=== PATIENT | female | born 1995 | race Two or more races ===

== ENCOUNTER 2017-03-28 07:23 | Inpatient (IN) | payer OTHER ==
[~2017-03-28] VITALS: Ht 157.5 cm; Wt 69.5 kg
[2017-03-28] MEDS ORDERED: ACETAMINOPHEN 500 MG TABLET PO ONE ×3 (08:01→08:15)
[2017-03-28] MEDS: IV NORMAL SALINE 1,000ML 1,000 ML IV SCH ×4 (08:10→17:06)
[2017-03-28] MEDS ORDERED: IV NORMAL SALINE 1,000ML 1,000 ML IV ONE (08:15)
[2017-03-28 08:51] LABS: CALCIUM 8.1 mg/dL (8.5-10.1); CREATININE 1.4 mg/dL (0.6-1.0); GFR 47.5; POTASSIUM 3.9 mmol/L (3.5-5.1)
[2017-03-28 08:52] LABS: ALBUMIN 3.4 g/dL (3.4-5.0); DIRECT BILIRUBIN 0.1 mg/dL (0.0-0.2); MAGNESIUM 1.7 mg/dL (1.8-2.4); TOTAL BILIRUBIN 0.4 mg/dL (0.2-1.0); TOTAL PROTEIN 6.5 g/dL (6.4-8.2)
--- NOTE | 2017-03-28 08:54 | RAD ---
Examination: Single frontal view the chest. History: History of palpitations, tachycardia Comparison: None available Findings: The cardiomediastinal silhouette grossly appears unremarkable. There is no acute infiltrate or visualized pneumothorax. Impression: No acute cardiopulmonary findings.
--- NOTE | 2017-03-28 09:06 | PHYS DOC ---
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 Pt states she saw her PCP Dr Mackey last , diagnosed upper respiratory infection and UTI discharged home with z-gerson and bactrim ds x 5 days. She completed both yesterday without missed doses. Pt states that the head congestion feels like it has moved to her chest but felt like she was improving. This morning she awoke with headache (bitemporal) not "worst of life" and myalgias. Temperature at home was 103 F, she noted her heart rate to be 144 bpm. She came to ED without prearrival treatment. On ED arrival: 102.4, 144, 20, 119/80, 100% RA Currently she complains of throbbing 8/10 headache, some back discomfort, nonproductive cough, and mildly scratchy throat. She's had poor PO intake past few days and some urinary frequency. No neck stiffness/rash/n/v/d/cp/sob/focal neurologic deficit/abdominal pain/ dysuria/flank pain/hematuria. She is normally healthy, IMM UTD (including meningococcal). 1320: I did ultimately contact Dr Mackey by phone. She reports that today's urine findings are consistent with those in her office last . Urine culture grew E. coli sensitive to bactrim. Timing/Duration: 1 week, getting worse Severity: severe Modifying Factors: improves with other Associated Symptoms: cough, diaphoresis, fever/chills, headaches, loss of appetite, malaise, other Allergies: Coded Allergies: No Known Allergies (Verified Allergy, Unknown, 03/28/17) Past Medical History Medical History: migraines Surgical History: noncontributory (wisdom teeth) Social History Smoker: non-smoker Alcohol: none Drugs: none Review of Systems Constitutional: chills, diaphoresis, fever, malaise EENTM: see HPI, denies eye pain, denies blurred vision, denies ear pain, denies ear discharge, nose congestion Respiratory: see HPI, cough, denies orthopnea, denies shortness of breath, denies wheezing Cardiovascular: see HPI, denies chest pain, denies syncope Gastrointestinal: denies abdominal pain, denies constipation, denies diarrhea, denies nausea, denies vomiting Genitourinary: see HPI Musculoskeletal: see HPI, denies joint swelling, denies muscle stiffness, denies neck pain Skin: denies dryness, denies lesions, denies rash Psychiatric/Neurological: headache, denies numbness, denies paresthesia, denies seizure, denies tingling, denies weakness Hematologic/Lymphatic: denies blood clots, denies easy bleeding, denies easy bruising Physical Exam General Appearance: WD/WN, no apparent distress Eyes: bilateral eye normal inspection, bilateral eye PERRL, bilateral eye EOMI Ear, Nose, Throat: hearing grossly normal, normal ENT inspection (green/yellow nasal and PND, mild pharyngeal erythema no exudate, airway patent) Neck: non-tender, full range of motion, supple (no meningeal signs, shotty tender LA b/l) Respiratory: chest non-tender, lungs clear, no respiratory distress, other ( mildly decreased bases b/l) Cardiovascular: normal peripheral pulses, no edema, no murmur, tachycardia Gastrointestinal: normal bowel sounds, non tender, soft, no organomegaly Back: normal inspection, no CVA tenderness, no vertebral tenderness Extremities: normal range of motion, non-tender, normal inspection, no calf tenderness, pelvis stable 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 No STEMI. Interpreted by me. PATIENT: MELISA EDMOND ACCOUNT: [id number] : 1995 LOCATION: ER AGE: 21 SEX: F EXAM STATUS: REG ER ORD. PHYSICIAN: VENTURA MCCLOUD DO REASON: tachycardia PROCEDURE: PORTABLE CHEST 1V Examination: Single frontal view the chest. History: History of palpitations, tachycardia Comparison: None available Findings: The cardiomediastinal silhouette grossly appears unremarkable. There is no acute infiltrate or visualized pneumothorax. Impression: No acute cardiopulmonary findings. DICTATED AND SIGNED BY: MILKA LANTIGUA MD DATE: 03/28/17 0848 CC: EDMUNDO MACKEY DO; VENTURA MCCLOUD DO ~ 0943: Time in dept 2h 21min, labs not yet resulted. Prolonged ED course due to lab delay. 1154: Time in department nearly 4 hours. D-dimer just resulted, elevated, CTA chest ordered. Further prolonged course as now will have radiology delay. Pt VS have begun to normalize, she's afebrile HR in 90's-100's. I recheck pt again , she reports she's feeling better, no longer with headache. Her color has improved. WBC 5.8, plt 126, bands 13, neuts 88, eos 6, BUN 12, Cr 1.4, lactic acid 1.1, mag 1.7, d-dimer 3.36 UA: SE mod, WBC 20-40, RBC 6-10, LE small, blood small, ket 40, +yeast PATIENT: MELISA EDMOND ACCOUNT: [id number] : 1995 LOCATION: ER AGE: 21 SEX: F EXAM STATUS: REG ER ORD. PHYSICIAN: VENTURA MCCLOUD DO REASON: cough, tachycardia, elev d-dimer PROCEDURE: CT ANGIOGRAPHY CHEST Examination: CT angiogram of the chest History: History of cough, tachycardia, elevated d-dimer, palpitations Comparison: None available Technique: Axial CT angiographic images chest were performed with IV contrast. Coronal and sagittal 3-D MIP reformats are performed PQRS Compliance Statement: One or more of the following individualized dose reduction techniques were utilized for this examination: 1. Automated exposure control 2. Adjustment of the mA and/or kV according to patient size 3. Use of iterative reconstruction technique. Findings: The visualized thyroid gland grossly appears unremarkable. The central airways are patent. The heart size grossly appears unremarkable. Minimal density identified in the anterior mediastinum measuring 35 Hounsfield units probably involuting thymus. There is no evidence of filling defect identified in the main pulmonary arterial trunk and right leg and left main pulmonary arteries. There is no evidence of filling defects identified in the visualized lobar, proximal segmental branches of the pulmonary arteries. The evaluation of the distal segmental branches of the pulmonary arteries is limited. Minimal bibasal lung atelectasis. The caliber of the aorta grossly appears unremarkable. The visualized liver, spleen, adrenals grossly appears unremarkable. No evidence of lytic bony destructive lesion. Impression: 1. No evidence of central pulmonary embolism. Evaluation of the distal pulmonary segmental branches of the pulmonary arteries is somewhat limited. 2. Minimal bibasal lung atelectasis. DICTATED AND SIGNED BY: MILKA LANTIGUA MD DATE: 03/28/17 1247 CC: EDMUNDO MACKEY DO; VENTURA MCCLOUD DO ~ Recheck after CT pt continues to feel better, HR back up 110's 1320: Discussed pt with Dr Mackey, she gave verbal urine culture result + E. coli sensitive to bactrim ds. She is agreeable to inpatient treatment. 1330: Discussed with Dr Kohler who agrees to accept pt for hydration, IV abx, continued observation. 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 Urine culture (01/20) + E. coli, pt arrives febrile and tachycardic sepsis suspected. Multiple lab draws delayed results due to hemolysis. 2L NS IV, rocephin 1g IV, tylenol 650mg with pt feeling much better although remains tachycardic. CXR/CTA chest unremarkable. Pt admitted to Dr Kohler. IMPRESSIONS: Sepsis UTI Sinusitis Hypovolemia Candiduria Renal Insuff Failure outpatient treatment Departure Disposition: ADMITTED INPATIENT Diagnosis: sepsis, uti, candiduria, thrombocytopenia, hypocal Condition: STABLE VENTURA MCCLOUD DO Mar 28, 2017 09:06
[2017-03-28 09:27] LABS: AMPHETAMINE/METHAMPHETAMINE NEG (NEG); BARBITURATES NEG (NEG); BENZODIAZEPINES NEG (NEG); CANNABINOIDS NEG (NEG); COCAINE NEG (NEG); METHADONE NEG (NEG); OPIATES NEG (NEG); PHENCYCLIDINE NEG (NEG)
[2017-03-28 09:53] LABS: BILIRUBIN,URINE NEG (NEG); CLARITY,URINE HAZY; COLOR,URINE YELLOW; GLUCOSE,URINE NEG (NEG); NITRITE,URINE NEG (NEG); UROBILINOGEN,URINE 0.2 mg/dL (0.2 mg/dL)
[2017-03-28 09:54] LABS: BACTERIA,URINE MOD /HPF (0-FEW); SQUAMOUS EPITHELIAL CELL,UR MOD /LPF; WBC,URINE 20-40 /HPF (0-4); YEAST,URINE PRESENT /HPF
[2017-03-28] MEDS ORDERED: IV NORMAL SALINE 50ML 50 ML ONE (09:54)
[2017-03-28] MEDS ORDERED: cefTRIAXone SODIUM 1 GM VIAL IV ONE (09:55)
[2017-03-28 10:06] LABS: BASO % 0 % (0-3); EOS # 0.3 x10^3/uL (0.0-0.7); EOS % 5 % (0-3); HEMATOCRIT 38.5 % (36.0-47.0); HEMOGLOBIN 13.5 g/dL (12.0-15.5); LYMPH # 0.2 x10^3/uL (1.0-4.8); LYMPH % 4 % (24-48); MEAN CORPUSCULAR HEMOGLOBIN 33 pg (25-35); MEAN CORPUSCULAR HGB CONC 35 g/dL (31-37); MEAN CORPUSCULAR VOLUME 93 fL (79-100); MONO # 0.1 x10^3/uL (0.0-1.1); MONO % 3 % (0-9); NEUT # 5.1 x10^3uL (1.8-7.7); NEUT % 88 % (31-73); PLATELET COUNT 126 x10^3/uL (140-400); RED BLOOD COUNT 4.14 x10^6/uL (3.50-5.40); RED CELL DISTRIBUTION WIDTH 12.5 % (11.5-14.5); WHITE BLOOD COUNT 5.8 x10^3/uL (4.0-11.0)
--- NOTE | 2017-03-28 10:48 | EKG ---
[address] [address] Test Date: 2017-03-28 Test Time: 08:41:11 Pat Name: MELISA EDMOND Department: Room: Gender: F Packaging Manager: : 1995 Requested By: VENTURA MCCLOUD Order Number: [id number] Reading MD: Measurements Intervals [place] Rate: 120 P: -92 ID: 120 QRS: 69 QRSD: 78 T: 12 QT: 360 QTc: 514 Interpretive Statements SINUS TACHYCARDIA LEFT ATRIAL ABNORMALITY QRS(T) CONTOUR ABNORMALITY CONSIDER ANTEROSEPTAL MYOCARDIAL DAMAGE ABNORMAL ECG RI6.01 No previous ECG available for comparison
[2017-03-28 11:36] LABS: % BANDS 13 % (0-9); % EOS 6 % (0-5); % LYMPHS 3 % (24-48); % METAS 1 % (0-0); % MONOS 2 % (0-10); % SEGS 75 % (35-66)
[2017-03-28 11:37] LABS: PLT ESTIMATE DECREASED (ADEQUATE)
[2017-03-28 11:38] LABS: TOXIC VACUOLATION PRESENT
[2017-03-28] MEDS ORDERED: birth control (12:10)
[2017-03-28] MEDS ORDERED: IOHEXOL 300 MG/ML 75 ML VIAL. IV ONE (12:30)
[2017-03-28] MEDS: MAGNESIUM CHLORIDE ER 64 MG TABLET.ER PO SCH (12:44)
[2017-03-28] MEDS ORDERED: FLUCONAZOLE 100 MG TABLET. PO ONE (12:45)
[2017-03-28] MEDS ORDERED: IV NORMAL SALINE 1,000ML 1,000 ML IV SCH (12:45)
--- NOTE | 2017-03-28 12:53 | RAD ---
Examination: CT angiogram of the chest History: History of cough, tachycardia, elevated d-dimer, palpitations Comparison: None available Technique: Axial CT angiographic images chest were performed with IV contrast. Coronal and sagittal 3-D MIP reformats are performed RS Compliance Statement: One or more of the following individualized dose reduction techniques were utilized for this examination: 1. Automated exposure control 2. Adjustment of the mA and/or kV according to patient size 3. Use of iterative reconstruction technique. Findings: The visualized thyroid gland grossly appears unremarkable. The central airways are patent. The heart size grossly appears unremarkable. Minimal density identified in the anterior mediastinum measuring 35 Hounsfield units probably involuting thymus. There is no evidence of filling defect identified in the main pulmonary arterial trunk and right leg and left main pulmonary arteries. There is no evidence of filling defects identified in the visualized lobar, proximal segmental branches of the pulmonary arteries. The evaluation of the distal segmental branches of the pulmonary arteries is limited. Minimal bibasal lung atelectasis. The caliber of the aorta grossly appears unremarkable. The visualized liver, spleen, adrenals grossly appears unremarkable. No evidence of lytic bony destructive lesion. Impression: 1. No evidence of central pulmonary embolism. Evaluation of the distal pulmonary segmental branches of the pulmonary arteries is somewhat limited. 2. Minimal bibasal lung atelectasis.
[2017-03-28] MEDS ORDERED: ONDANSETRON PF 4 MG/2 ML VIAL. IV PRN (13:30)
[2017-03-28 13:41] LABS: MONONUCLEOSIS PATIENT NEGATIVE (NEGATIVE)
[2017-03-28] MEDS ORDERED: PIP/TAZO PER PHARMACY MC PRN (13:45)
[2017-03-28] MEDS ORDERED: VANCOMYCIN 1 GM VIAL. ONE (13:48)
[2017-03-28] MEDS ORDERED: IV NORMAL SALINE 500ML 500 ML ONE (13:48)
[2017-03-28] MEDS ORDERED: PIPERACILLIN/TAZOBACTAM 4.5 GM in IV NORMAL SALINE 50ML 50 ML IV SCH (14:00)
[2017-03-28] MEDS ORDERED: VANCOMYCIN 1.5 GM in IV NORMAL SALINE 500ML 500 ML IV ONE (14:30)
[2017-03-28 15:30] VITALS: BP 136/74
[2017-03-28] MEDS: ACETAMINOPHEN 325 MG TABLET PO PRN ×2 (15:52→21:40)
[2017-03-28] MEDS: PIPERACILLIN/TAZOBACTAM 4.5 GM in IV NORMAL SALINE 50ML 50 ML IV SCH (17:05)
[2017-03-28 19:00] VITALS: BP 127/58
[2017-03-28] MEDS: VANCOMYCIN PER PHARMACY MC PRN (19:32)
[2017-03-29] MEDS: PIPERACILLIN/TAZOBACTAM 4.5 GM in IV NORMAL SALINE 50ML 50 ML IV SCH ×2 (00:58→09:14)
[2017-03-29] MEDS: IV NORMAL SALINE 1,000ML 1,000 ML IV SCH ×3 (00:58→14:03)
[2017-03-29 05:45] VITALS: BP 118/62
[2017-03-29 06:04] LABS: BASO % 0 % (0-3); EOS # 0.4 x10^3/uL (0.0-0.7); EOS % 13 % (0-3); HEMATOCRIT 35.6 % (36.0-47.0); HEMOGLOBIN 12.8 g/dL (12.0-15.5); LYMPH # 0.7 x10^3/uL (1.0-4.8); LYMPH % 24 % (24-48); MEAN CORPUSCULAR HEMOGLOBIN 33 pg (25-35); MEAN CORPUSCULAR HGB CONC 36 g/dL (31-37); MEAN CORPUSCULAR VOLUME 92 fL (79-100); MONO # 0.2 x10^3/uL (0.0-1.1); MONO % 7 % (0-9); NEUT # 1.6 x10^3uL (1.8-7.7); NEUT % 56 % (31-73); PLATELET COUNT 108 x10^3/uL (140-400); RED BLOOD COUNT 3.89 x10^6/uL (3.50-5.40); RED CELL DISTRIBUTION WIDTH 12.7 % (11.5-14.5); WHITE BLOOD COUNT 2.8 x10^3/uL (4.0-11.0)
[2017-03-29 06:11] LABS: CALCIUM 7.4 mg/dL (8.5-10.1); CREATININE 0.9 mg/dL (0.6-1.0); POTASSIUM 3.9 mmol/L (3.5-5.1)
[2017-03-29] MEDS: VANCOMYCIN PER PHARMACY MC PRN (07:41)
[2017-03-29] MEDS ORDERED: VANCOMYCIN 1 GM in IV NORMAL SALINE 250ML 250 ML IV SCH ×3 (09:00→14:00)
[2017-03-29] MEDS: MAGNESIUM CHLORIDE ER 64 MG TABLET.ER PO SCH (09:13)
[2017-03-29] MEDS: ACETAMINOPHEN 325 MG TABLET PO PRN (09:22)
[2017-03-29 10:31] VITALS: BP 114/59
[2017-03-29 15:16] VITALS: BP 110/64
[2017-03-29 18:28] VITALS: BP 121/68
[2017-03-29] MEDS: DOXYCYCLINE HYCLATE 100 MG TABLET PO SCH (19:42)
[2017-03-29] MEDS ORDERED: HYDROcodone/APAP 5/325MG 1 TAB TABLET PO PRN (19:45)
[2017-03-29] MEDS ORDERED: ACETAMINOPHEN 325 MG TABLET PO PRN (19:45)
--- NOTE | 2017-03-29 21:27 | HP ---
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 She stated that she saw her primary care physician, Dr. García last , diagnosed with upper respiratory tract infection, UTI, was sent home on Z-JUAN and Bactrim-DS for 5 days. She completed course yesterday that is Monday. She completed both treatments without missing doses. She did have head congestion and feels like it has moved to her chest, but felt like she was improving. She also complained that she woke up with headache, bitemporal, not worse of life and myalgias. Her temperature at home was up to 103 Fahrenheit. She noted that her heart rate is up to 144 beats per minute when she came to the Emergency Room without the arrival treatment and her temperature on arrival was 102.4, heart rate was 44, respiratory rate 20, and her blood pressure was 119/80 and oxygen saturation 100% on room air. She did complain of a throbbing 8/10 headache, some back discomfort, nonproductive cough and mild scratchy throat. She also had poor p.o. intake for the last few days and some urinary frequency. However, on arrival to the Emergency Room ____ apparently her urine culture at her primary care physician's office grew E. coli sensitive to Bactrim. She was evaluated in the Emergency Room and all her lab works were essentially unremarkable. However, her D-dimer was high at 3.36 mg/dL. Her urinalysis showed mild proteinuria, 100 mg/dL, mild amount of ketones, some blood, negative for nitrite, and small amount of leukocyte esterase. There were 6-10 rbc's, 20-40 wbc's, moderate amount of bacteria. Her test was negative. Her toxic screen was negative. Her ____ were negative and nasal screen for MRSA by PCR was negative. She was admitted and was continued on IV vancomycin and Zosyn as well as IV fluid. Her urine and blood was sent for culture and sensitivity. PAST MEDICAL HISTORY: Significant for recurrent UTIs. PAST SURGICAL HISTORY: Significant for wisdom teeth extraction. ALLERGIES: She has no known drug allergies. MEDICATIONS: She is on a control pill that she takes daily. She took obviously a course of Bactrim and Zithromax, which she completed the day before yesterday. She apparently on control pill because her periods were irregular and she started taking them about 3 years ago. REVIEW OF SYSTEMS: The patient denied any blurring of vision, cataract, glaucoma, or macular degeneration. Denied any earache, tinnitus, or sensorineural deafness. Denied any nosebleeds, stuffy nose, or postnasal drip. Denied any sore throat, sore tongue, toothache, hoarseness of voice, or difficulty swallowing. Denied any nausea, vomiting, diarrhea, or constipation. Denied any hematemesis, melena, or hematochezia. Denied any dysuria, frequency, or hematuria. Denied any chest pain, shortness of breath, orthopnea, or paroxysmal nocturnal dyspnea. Denied any cough, phlegm, or hemoptysis. She does have a dry cough. Denied any dizziness, lightheadedness. PHYSICAL EXAMINATION: GENERAL: Obviously, she came with a temperature of 102.5 on arrival to the Emergency Room. On examining her, she looked well and was clearly in no apparent distress. She was somewhat pale, but no jaundice, cyanosis, or thyromegaly. No jugular venous distention. No lymphedema. VITAL SIGNS: Her heart rate on admission was 144, blood pressure was 109/58, temperature was 102.4, respiratory rate was 20, and oxygen saturation was 100% on room air. HEAD, EYES, EARS, NOSE, AND THROAT: Normocephalic, atraumatic. NECK: Supple. HEART: Showed normal first and second heart sounds with no gallop, rub, or murmur. CHEST: Clear to auscultation. No crepitation or rhonchi. ABDOMEN: Distended, soft, nontender. No guarding or rigidity. No organomegaly. All hernial orifices intact. Bowel sounds normal. NEUROLOGICAL: She was awake, alert, responding appropriately. Cranial nerves intact. She moves her extremities without difficulty. She ambulates without assistance or assistive devices. She has no neck rigidity. Kernig's sign was negative. LABORATORY DATA: Her lab work on admission showed a white cell count of 5,800, hemoglobin 13.5, hematocrit 38.5, MCV 93, and platelet count of 126,000 with normal manual differential with 88% polymorphs, 4% lymphocytes, 3% monocytes. Her chemistry on admission showed that her serum sodium was 134, potassium 3.9, chloride 102, bicarbonate 24, anion gap of 8, BUN 12, creatinine 1.4, estimated GFR was 47.5 mL per minute. Her glucose was 100, lactic acid was 1.1, calcium was 8.1, magnesium was 1.7. Total bilirubin, AST, ALT, alkaline phosphatase were normal. Total protein was 6.5, albumin was 3.4. Her D-dimer was 3.36. Urinalysis showed that the urine was yellow, hazy with a pH of 6, specific gravity of 1.025. There is large amount of protein. The urine was negative for glucose, positive for ketones, small amount of blood, negative for nitrite, there was small amount of leukocyte esterase, 6-10 rbc's, 20-40 wbc's. There was moderate amount of bacteria and yeast was present in the urine and her urine test was negative. Her toxicology screen was essentially negative. She did have a chest x-ray, which showed that the cardiomediastinal silhouette grossly appears unremarkable. There is no acute infiltrates visualized or visualized pneumothorax. Because of elevated D-dimer and the fact that she is on oral contraceptive pills, tachycardia and cough, she had had a CT angiogram of the chest performed with IV contrast and basically the visualized thyroid gland grossly appears unremarkable. The central airways are patent. The heart size grossly appears unremarkable. Minimal density identified in the anterior mediastinum measuring 35 Hounsfield units, probably involuting thymus. There is no evidence of filling defects identified in the main pulmonary arterial trunk of the right and left main pulmonary arteries. There is no evidence of filling defects identified in the visualized lobe or proximal segmental branches of the pulmonary arteries. The evaluation of the distal segmental branches of the pulmonary arteries is limited. The patient has minimal bibasilar lung atelectasis. The caliber of the aorta grossly appears unremarkable. The visualized liver, spleen, adrenals grossly appears unremarkable. No evidence of lytic bony destructive lesion. PLAN: The patient was started on IV fluid as well as IV Zosyn and vancomycin. We will obviously follow her lab work as well as the culture of blood and decide on further management accordingly. There is no evidence and clinically she does not have any meningeal or neck rigidity, although presentation are likely to be consistent with viral meningitis. She was treated with antibiotics for her urinary tract infection, which grew E. coli sensitive to Bactrim. ROSEMARIE DE LA TORRE MD DR: DEEPAK/ileana JOB#: [id number] / [id number]
[2017-03-30 00:37] VITALS: BP 101/58
[2017-03-30 05:36] VITALS: BP 106/57
[2017-03-30 06:57] LABS: CALCIUM 8.4 mg/dL (8.5-10.1); CREATININE 0.9 mg/dL (0.6-1.0); POTASSIUM 3.9 mmol/L (3.5-5.1)
[2017-03-30 07:10] LABS: BASO % 0 % (0-3); EOS # 0.4 x10^3/uL (0.0-0.7); EOS % 13 % (0-3); HEMATOCRIT 41.4 % (36.0-47.0); HEMOGLOBIN 14.6 g/dL (12.0-15.5); LYMPH # 1.7 x10^3/uL (1.0-4.8); LYMPH % 49 % (24-48); MEAN CORPUSCULAR HEMOGLOBIN 32 pg (25-35); MEAN CORPUSCULAR HGB CONC 35 g/dL (31-37); MEAN CORPUSCULAR VOLUME 92 fL (79-100); MONO # 0.3 x10^3/uL (0.0-1.1); MONO % 9 % (0-9); NEUT % 30 % (31-73); PLATELET COUNT 125 x10^3/uL (140-400); RED BLOOD COUNT 4.51 x10^6/uL (3.50-5.40); RED CELL DISTRIBUTION WIDTH 12.8 % (11.5-14.5); WHITE BLOOD COUNT 3.4 x10^3/uL (4.0-11.0)
[2017-03-30] MEDS: MAGNESIUM CHLORIDE ER 64 MG TABLET.ER PO SCH (08:10)
[2017-03-30] MEDS: DOXYCYCLINE HYCLATE 100 MG TABLET PO SCH (08:10)
--- NOTE | 2017-03-30 09:01 | PN ---
DATE: 03/29/2017 SUBJECTIVE: The patient was admitted yesterday with fever, headache after completing a 5-day course of Bactrim DS as well as Z-Casimiro for upper respiratory infection as well as UTI. Ultimately, her urine culture has grown E. coli, sensitive to Bactrim. She completed treatment, but she came to the Emergency Room complaining of severe headache, bitemporal, not the worst in her life, with generalized aches and pains. Her temperature at home was 103 Fahrenheit, her heart rate was up to 144 beats per minute and initial evaluation showed that all her lab works were normal except elevated D-dimer. Because of tachycardia and the fact that she is on oral contraceptive, she has had a CT scan of the chest with PE protocol, which showed that there is no evidence of pulmonary emboli. She was started empirically on IV Zosyn and vancomycin. When I saw her today, she stated that she is feeling generally well. He has had no further episode of headache. She has eaten her breakfast and lunch and she is generally doing well. OBJECTIVE: GENERAL: When I examined her, she was pale, but no jaundice, cyanosis, lymphadenopathy, or thyromegaly. No jugular venous distention. No limb edema. VITAL SIGNS: His heart rate was 76, blood pressure 114/59, temperature was 99.3, respiratory rate was 18 and oxygen saturation was 98%. HEENT: Showed normocephalic, atraumatic. NECK: Supple. There is definitely no neck rigidity. Kernig's sign was negative. HEART: Showed normal first and second heart sounds with no gallop, rub or murmur. CHEST: Clear to auscultation. No crepitation or rhonchi. ABDOMEN: Distended, soft, nontender. No guarding or rigidity. No organomegaly. Hernial orifices intact. Bowel sounds normal. NEUROLOGIC: She is awake, alert, responding appropriately. Cranial nerves intact. She moves extremities without difficulty. She ambulates without assistance or assistive devices. Her intake over the last 24 hours was 6280, output was 1550. LABORATORY DATA: Her lab work this morning showed that her serum sodium was 137, potassium 3.9, chloride 107, bicarbonate 23, anion gap of 7, BUN 7, creatinine is down to 0.9, estimated GFR is up to 79 mL per minute. Her glucose was 92, calcium was 7.4. Her white cell count was down to 2800, hemoglobin 12.8, hematocrit 35.6, MCV was 92, and platelet count is down to 108,000. Her sedimentation rate was only 4 mm per hour. Her blood cultures are so far negative. Chest x-ray was negative. Chest CT showed no evidence of infection or pulmonary emboli. ASSESSMENT AND PLAN: The patient's clinical picture seems to be almost like aseptic meningitis. One of the side effects of Bactrim is the aseptic meningitis and headache. I will contact Infectious Disease specialist to discuss the findings and to see whether we should continue with IV antibiotic or stop them given that she is feeling generally better. ROSEMARIE DE LA TORRE MD DR: DEEPAK/ileana JOB#: [id number] / [id number]
[2017-03-30 11:09] VITALS: BP 109/60
[2017-03-30] MEDS ORDERED: HYDR-2758 PO (13:00)
[2017-03-30] MEDS ORDERED: DOXY100C2 PO (13:00)
--- NOTE | 2017-03-31 00:18 | DS ---
DATE OF DISCHARGE: 03/30/2017 HISTORY OF PRESENT ILLNESS: This is a 21-year-old female patient who came to the Emergency Room with a complaint of headache and fever up to 103 Fahrenheit. She has also aches and pains. She was apparently diagnosed with upper respiratory tract infection as well as UTI and was sent home on Z-Casimiro and Bactrim-DS for five days, she did complete a course of treatment. However, on Monday, she woke up with headache, bitemporal, not the worst in her life, myalgias. Her temperature was up to 103 Fahrenheit. She noted that her heart rate was 144 beats per minute. By the time she arrived to the Emergency Room, her temperature was 102.4, her heart rate was 144, respiratory rate 20 and blood pressure was 119/80. She did complain of severe throbbing 8/10 headache and some back discomfort, nonproductive cough, mild scratchy throat. She also has poor p.o. intake. Initial evaluation showed that she has elevated D-dimer at 3.36. Her urinalysis showed mild proteinuria of 100 mg/dL with mild amount of ketones and some blood, negative for nitrite, small amount of leukocyte esterase. Her test was negative. Her toxic screen was negative. Her serum creatinine was slightly elevated at 1.4. She was admitted and was started on IV vancomycin and Zosyn as well as IV fluids. Her urine and blood cultures were sent. However, her white cell count and platelet was trending down and it was felt that the patient probably has some form of a tick-borne fever, possibly Ehrlichiosis evident. I spoke with Dr. Gutiérrez, the Infectious Disease, and presented to him the picture, and his recommendation was to discontinue the IV antibiotic, start her on doxycycline. She did actually very well. She remained afebrile and hemodynamically stable. Her white cell count and platelets has risen, and decision was made to discharge her home to complete the course of treatment with doxycycline for a presumed tick-borne fever. When I examined her today, she stated that she is feeling generally much better and the headache is much improved, there is no fever. PHYSICAL EXAMINATION: VITAL SIGNS: Her heart rate was 70, blood pressure was 109/60, temperature was 98.2, respiratory rate 20, and oxygen saturation was 99%. The rest of clinical examination is unremarkable, has not really changed. LABORATORY AND IMAGING STUDIES: Her white cell count is up to 3400, hemoglobin 14, hematocrit 41, MCV 92, and platelet count 255,000. Her chemistry showed a serum sodium 141, potassium 3.9, chloride 106, bicarbonate 27, anion gap of 8, BUN 5, creatinine 0.9, estimated GFR was 79 mL, per minute. Her glucose was 85, calcium was 8.4. Her D-dimer was elevated at 3.36; however, her CT scan of the chest with PE protocol was negative for pulmonary emboli. Tox screen was negative. Serology was negative for heterophile agglutinins and nasal screen for MRSA by PCR was negative. FINAL DISCHARGE DIAGNOSES: Likely tick-borne fever, leukopenia, thrombocytopenia and mildly impaired kidney function that has resolved and proteinuria. ROSEMARIE DE LA TORRE MD DR: DEEPAK/ileana JOB#: [id number] / [id number]
== END 2017-03-30 13:20 | disposition home or self-care (01) | DRG 865 ==
LOC: ER 07:28 → ICU 14:45
PROVIDERS: ADMIT Internal Medicine; ATTEND Internal Medicine
DX: A93.8 Other specified arthropod-borne viral fevers (principal); G03.0 Nonpyogenic meningitis; N17.0 Acute kidney failure with tubular necrosis; D69.6 Thrombocytopenia, unspecified; J06.9 Acute upper respiratory infection, unspecified; G43.909 Migraine, unspecified, not intractable, without status migrainosus; J32.9 Chronic sinusitis, unspecified; T37.0X5A Adverse effect of sulfonamides, initial encounter; B96.20 Unspecified Escherichia coli [E. coli] as the cause of diseases classified elsewhere; Z87.440 Personal history of urinary (tract) infections; Y92.89 Other specified places as the place of occurrence of the external cause
CPT/HCPCS: 36415; 71010; 71275; 80048; 80076; 80307; 81001; 81025; 82550; 83605; 83690; 83735; 84484; 85007; 85025; 85379; 85651; 86308; 87040; 87086; 87641; 93005; 96361; 96365; 96367; J0696; J2543; J3370; J7040; J7050; Q9967; 99285-25; G0479; J7030